=== PATIENT | female | born 1970 | race Caucasian/White ===

== ENCOUNTER 2016-08-26 08:01 | Day surgery (SDC) | payer BC ==
[~2016-08-26] VITALS: Ht 172.7 cm; Wt 76.0 kg
[2016-08-26 08:44] VITALS: BP 123/77
[2016-08-26 11:18] VITALS: BP 127/85
[2016-08-26 11:51] VITALS: BP 149/47
== END 2016-08-26 12:15 | disposition home or self-care (01) ==
LOC: SDC 08:01
PROC: 0UDB8ZX Extraction of Endometrium, Via Natural or Artificial Opening Endoscopic, Diagnostic (ICD-10-PCS; principal; 2016-08-26)
DX: N92.1 Excessive and frequent menstruation with irregular cycle (principal); Z53.09 Procedure and treatment not carried out because of other contraindication; Z88.5 Allergy status to narcotic agent; Z88.8 Allergy status to other drugs, medicaments and biological substances; Z80.3 Family history of malignant neoplasm of breast; Z82.5 Family history of asthma and other chronic lower respiratory diseases
CPT/HCPCS: 87086; 88305; J0131; J0690; J1100; J1885; J2405; J3010